=== PATIENT | female | born 1975 | race Caucasian/White ===

== ENCOUNTER 2019-11-10 14:28 | Inpatient (IN) | payer OTHER ==
--- NOTE | 2019-11-10 15:49 | BHS.RME ---
Substance Use & Tx History - Substance Use History Alcohol Substance amount: 2-3 bottles of wine Frequency of use: Daily Substance route: Oral Date of Last Use: 11/10/19 Physical/Psych/Mental Status - Behavior General Behavior: Increased activity (restlessness, agitation) Eye Contact: Normal - Cooperativeness Cooperativeness: Cooperative - Physical Health Problems Is patient presently having any pain?: No Does patient presently have any injuries (include location): No Does patient currently have a fever: No Is patient : No CIWA Nausea/Vomitin Muscle Tremors: 3 Anxiety: 4-Mod. Anxious/Guarded Agitation: 0-Normal Activity Paroxysmal Sweats: No Perspiration Orientation: 0-Oriented Tacttile Disturbances: 0-None Auditory Disturbances: 0-None Visual Disturbances: 0-None Headache: 3-Moderate CIWA-Ar Total Score: 12
--- NOTE | 2019-11-10 17:02 | HP ---
CIWA Score Nausea/Vomitin Muscle Tremors: 3 Anxiety: 4-Mod. Anxious/Guarded Agitation: 0-Normal Activity Paroxysmal Sweats: No Perspiration Orientation: 0-Oriented Tacttile Disturbances: 0-None Auditory Disturbances: 0-None Visual Disturbances: 0-None Headache: 3-Moderate CIWA-Ar Total Score: 12 - Admission Criteria OASAS Guidelines: Admission for Medically Managed Detox: Requires at least one of the followin. CIWA greater than 12 2. Seizures within the past 24 hours 3. Delirium tremens within the past 24 hours 4. Hallucinations within the past 24 hours 5. Acute intervention needed for co occurring medical disorder 6. Acute intervention needed for co occurring psychiatric disorder 7. Severe withdrawal that cannot be handled at a lower level of care (continued vomiting, continued diarrhea, abnormal vital signs) requiring intravenous medication and/or fluids 8. Admitting History and Physical - Admission Chief Complaint: ETOH withdrawal symptoms History Source: Patient Limitations to Obtaining History: No Limitations - Past Medical History ...LMP: 11/10/19 Psych: Yes: Anxiety - Past Surgical History Past Surgical History: Yes: Bariatric Surgery - Smoking History Smoking history: Never smoked Have you smoked in the past 12 months: No - Alcohol/Substance Use Hx Alcohol Use: Yes Number of Drinks Daily: 10 History of Substance Use: reports: None - Social History Usual Living Arrangement: Yes: Alone Do you think of yourself as: Straight/Heterosexual ADL: Independent History of Recent Travel: No Admission [facility] Chief Complaint: ETOH withdrawal symptoms Allergies/Adverse Reactions: Allergies Allergy/AdvReac Type Severity Reaction Status Date / Time No Known Allergies Allergy Verified 11/10/19 15:44 History of Present Illness: PATIENT PRESENTS FOR ALCOHOL WITHDRAWAL SYMPTOMS. PATIENT HAS HX OF DRINKING SOCIALLY BUT IT BECAME PROBLEMATIC AT AGE 42 (AFTER HER GASTRIC BYPASS SURGERY). PATIENT DRINKS 2-3 BOTTLES OF WINE DAILY, WITH LAST DRINK THIS MORNING. PATIENT DENIES HX OF SEIZURES, BUT REPORTS HX OF BLACKOUTS AND EYEOPENER. NO PMH REPORTED. PATIENT HAS HX OF ANXIETY AND PANIC ATTACKS. TREATED WITH KLONIPIN BY COMMUNITY PSYCH MD. PATIENT INFORMED MEDICATION WILL NOT BE GIVEN WHILE IN DETOX. SHE CURRENTLY DENIES SI/HI BUT REPORTS HX OF SUICIDE ATTEMPTS. LAST ATTEMPT 6 MONTHS AGO. Exam Limitations: No Limitations - Ebola screening Have you traveled outside of the country in the last 21 days: No Have you had contact with anyone from an Ebola affected area: No Have you been sick,other than usual withdrawal symptoms: No Do you have a fever: No - Review of Systems Constitutional: Loss of Appetite EENT: reports: No Symptoms Reported Respiratory: reports: No Symptoms reported Cardiac: reports: No Symptoms Reported GI: reports: Nausea : reports: No Symptoms Reported Musculoskeletal: reports: No Symptoms Reported Integumentary: reports: No Symptoms Reported Neuro: reports: Headache, Tremors Endocrine: reports: No Symptoms Reported Hematology: reports: No Symptoms Reported Psychiatric: reports: Orientated x3, Anxious (DENIES SI/HI) Patient History - Patient Medical History Hx Anemia: No Hx Asthma: No Hx Chronic Obstructive Pulmonary Disease (COPD): No Hx Cancer: No Hx Cardiac Disorders: No Hx Congestive Heart Failure: No Hx Hypertension: No Hx Hypercholesterolemia: No Hx Pacemaker: No HX Cerebrovascular Accident: No Hx Seizures: No Hx Dementia: No Hx Diabetes: No Hx Gastrointestinal Disorders: No Hx Liver Disease: No Hx Genitourinary Disorders: No Hx Sexually Transmitted Disorders: No Hx Renal Disease (ESRD): No Hx Thyroid Disease: No Hx Human Immunodeficiency Virus (HIV): No Hx Hepatitis C: No Hx Depression: No (DENIES SI/HI, HX OF SUICIDE ATTEMPT 6 MONTHS AGO) Hx Suicide Attempt: No Hx Bipolar Disorder: No Hx Schizophrenia: No Other Medical History: anxious - Patient Surgical History Past Surgical History: Yes Hx Abdominal Surgery: Yes (Gastric Bypass) Anesthesia Reaction: No - PPD History Previous Implant?: Yes Documented Results: Negative w/o proof Implanted On Prior R Admission?: No PPD to be Administered?: Yes - Reproductive History Patient is a Female of Child Bearing Age (11 -55 yrs old): Yes Last Menstrual Period: 11/10/19 Patient : No - Smoking Cessation Smoking history: Never smoked Have you smoked in the past 12 months: No Hx Chewing Tobacco Use: No Initiated information on smoking cessation: No - Substance & Tx. History Hx Alcohol Use: Yes Hx Substance Use: No Substance Use Type: Alcohol Hx Substance Use Treatment: Yes Admission Physical Exam BHS - Physical General Appearance: Yes: Nourished, Appropriately Dressed, Tremorous, Anxious HEENTM: Yes: EOMI, Hearing grossly Normal, Normocephalic, Normal Voice, REYNA, Pharynx Normal Respiratory: Yes: Chest Non-Tender, Lungs Clear, Normal Breath Sounds, No Respiratory Distress, No Accessory Muscle Use Neck: Yes: No masses,lesions,Nodules, Supple, Trachea in good position Breast: Yes: Breast Exam Deferred Cardiology: Yes: Regular Rhythm, Regular Rate Abdominal: Yes: Normal Bowel Sounds, Non Tender, Soft Genitourinary: Yes: Within Normal Limits Back: Yes: Within Normal Limits Musculoskeletal: Yes: full range of Motion, Gait Steady Extremities: Yes: Normal Range of Motion, Non-Tender, Tremors Neurological: Yes: design intern II-XII NML intact, Fully Oriented, Alert, Motor Strength 5/5, Normal Response, Other (ANXIOUS/TEARFUL) Integumentary: Yes: Normal Color, Dry, Warm Lymphatic: Yes: Within Normal Limits - Diagnostic (1) Alcohol dependence with withdrawal, uncomplicated Current Visit: Yes Status: Acute (2) Anxiety Current Visit: Yes Status: Chronic Cleared for Admission S - Detox or Rehab [facility] Level of Care: Medically Managed Detox Regimen/Protocol: Librium Breathalyzer - Breathalyzer Breathalyzer: 0 POC Urine test - Control test control: Yes - Result Urine Test Results: Negative - NO line present Urine Drug Screen - Results Drug screen NEGATIVE: No Urine drug screen results: BZO-Benzodiazepines Inpatient Rehab Admission - Rehab Decision to Admit Inpatient rehab admission?: No
[2019-11-10 17:03] VITALS: BMI 28.8
[2019-11-10] MEDS ORDERED: guaiFENesin 200 MG/10 ML 10 ML UNIT-DOSE CUPS PO PRN (17:13)
[2019-11-10] MEDS ORDERED: traZODone HCL 50 MG TABLET (FP) PO PRN (17:13)
[2019-11-10] MEDS ORDERED: ONDANSETRON *ODT* 4 MG TABLET SL PRN (17:13)
[2019-11-10] MEDS ORDERED: MAGNESIUM CITRATE 300 ML BOTTLE PO PRN (17:13)
[2019-11-10] MEDS ORDERED: BISMUTH SUBSALICYLATE 524 MG/30 ML UD PO PRN (17:13)
[2019-11-10] MEDS ORDERED: MAG HYDROX/AL HYDROX/SIMETH 30 ML UNIT-DOSE CUP PO PRN (17:13)
[2019-11-10] MEDS ORDERED: METHOCARBAMOL 500 MG TABLET PO PRN (17:13)
[2019-11-10] MEDS ORDERED: IBUPROFEN 400 MG TABLET (FP) PO PRN (17:13)
[2019-11-10] MEDS ORDERED: MAGNESIUM HYDROX 2400MG/30ML ORAL SUSPENSION 30 ML CUP PO PRN (17:13)
[2019-11-10] MEDS ORDERED: ACETAMINOPHEN 325 MG TABLET (FP) PO PRN ×2 (17:13)
[2019-11-10] MEDS ORDERED: MENTHOL/PHENOL 1 EACH UD MM PRN (17:13)
[2019-11-10] MEDS ORDERED: chlordiazePOXIDE HCL 10 MG CAPSULE PO PRN (17:17)
[2019-11-10] MEDS ORDERED: chlordiazePOXIDE HCL 25 MG CAPSULE PO ONE (17:17)
[2019-11-10] MEDS: THIAMINE HCL 100 MG TABLET (FP) PO SCH (21:45)
[2019-11-10] MEDS: chlordiazePOXIDE HCL 25 MG CAPSULE PO SCH (21:45)
[2019-11-10] MEDS: MELATONIN 5 MG TABLETS PO SCH (21:45)
[2019-11-11] MEDS: chlordiazePOXIDE HCL 25 MG CAPSULE PO SCH ×3 (05:24→22:43)
[2019-11-11 10:15] LABS: HEMATOCRIT 36.9 % (32.4-45.2); HEMOGLOBIN 12.4 GM/dL (10.7-15.3); MCH 34.4 pg (25.7-33.7); MCHC 33.7 g/dl (32.0-36.0); MEAN CELL VOLUME 102.2 fl (80-96); MEAN PLT VOLUME 7.4 fl (7.5-11.1); PLATELET COUNT 200 K/MM3 (134-434); RBC 3.61 M/mm3 (3.60-5.2); RDW 15.4 % (11.6-15.6); WHITE BLOOD COUNT 4.5 K/mm3 (4.0-10.0)
[2019-11-11 10:26] LABS: ALBUMIN 2.8 g/dl (3.4-5.0); BILIRUBIN,TOTAL 1.2 mg/dL (0.2-1); BLOOD UREA NITROGEN 14.6 mg/dL (7-18); CALCIUM 8.7 mg/dL (8.5-10.1); CREATININE 0.7 mg/dL (0.55-1.3); POTASSIUM 4.4 mmol/L (3.5-5.1); TOT PROT 6.9 g/dl (6.4-8.2)
[2019-11-11] MEDS: PRENATAL VITAMINS W/ FOLIC ACID TABLET (FP) PO SCH (10:35)
--- NOTE | 2019-11-11 12:32 | CONSULT ---
[facility] Psychiatric Consult - Data Date of interview: 11/11/19 Admission source: [facility] Identifying data: First visit to [facility] and admission to [address] [place] [address] for this 43 y/o female self-referred for detoxification treatment. ALEXSANDRA issues : alcohol. Patient is , no dependents, domiciled (lives with her parents) and currently employed ([employer]). Substance Abuse History: Discussed with the patient in this interview. ALEXSANDRA pro file as follows : Smoking history: Never smoked. Have you smoked in the past 12 months: No. Hx Chewing Tobacco Use: No. Initiated information on smoking cessation: No. Substance & Tx. History. Hx Alcohol Use: Yes. Hx Substance Use: No. Substance Use Type: Alcohol. Hx Substance Use Treatment: Yes. Consumes 2-3 bottles of wine on a daily basis. Medical History: Patient endorses good general health. History of bariatric surgery. No known allergies. Psychiatric History: Patient admits to a distant history of " a few " psychiatric hspitalizations (all at [facility]). Had occurred years ago. Ms Chin states that she had been diagnosed with Bipolar Disorder + Panic Disorder + PTSD. She is currently seeing a psychiatrist, Dr Johnston, at the [facility] in the [place]. Patient indicates that she is prescribed " a mood stabilizer " in addition to clonazepam. She endorses history of multiple suicide attempts via various means (overdose with medications + self-mutilation). Physical/Sexual Abuse/Trauma History: Not discussed. Patient declines. Additional Comment: Urine drug screen results: BZO-Benzodiazepines. Noted. Mental Status Exam - Mental Status Exam Alert and Oriented to: Time, Place, Person Cognitive Function: Good Patient Appearance: Well Groomed (short stature, tattoos on upper extremities, neck, upper chest; bald) Mood: Hopeful Affect: Appropriate, Normal Range Patient Behavior: Fatigued, Appropriate, Cooperative Speech Pattern: Clear, Appropriate (articulate historian) Voice Loudness: Normal Thought Process: Intact, Goal Oriented Thought Disorder: Not Present Hallucinations: Denies Suicidal Ideation: Denies Homicidal Ideation: Denies Insight/Judgement: Poor Sleep: Poorly, Difficulty falling asleep Appetite: Good Gait/Station: Normal Psychiatric Findings - Problem List (Malo 1, 2,3) (1) Alcohol dependence with withdrawal, uncomplicated Current Visit: Yes Status: Acute (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 - Initial Treatment Plan Initial Treatment Plan: Psychoeducation. Sleep hygiene. Motivational counseling. Detoxification in progress. Observation.
--- NOTE | 2019-11-11 13:30 | PN ---
[facility] CIWA - CIWA Score Nausea/Vomitin-No Nausea/No Vomiting Muscle Tremors: 3 Anxiety: 3 Agitation: 2 Paroxysmal Sweats: 3 Orientation: 0-Oriented Tacttile Disturbances: 0-None Auditory Disturbances: 0-None Visual Disturbances: 0-None Headache: 0-None Present CIWA-Ar Total Score: 11 S Progress Note (SOAP) Subjective: Complaints of tremors, agitation, anxiety, and sweats. Objective: 11/11/19 13:29 Vital Signs 11/11/19 09:32 Temperature 96.6 F L Pulse Rate 64 Respiratory 18 Rate Blood Pressure 87/54 L O2 Sat by Pulse 99 Oximetry (%) Laboratory Last Values WBC 4.5 K/mm3 (4.0-10.0) 11/11/19 07:25 RBC 3.61 M/mm3 (3.60-5.2) 11/11/19 07:25 Hgb 12.4 GM/dL (10.7-15.3) 11/11/19 07:25 Hct 36.9 % (32.4-45.2) 11/11/19 07:25 MCV 102.2 fl (80-96) H 11/11/19 07:25 MCH 34.4 pg (25.7-33.7) H 11/11/19 07:25 MCHC 33.7 g/dl (32.0-36.0) 11/11/19 07:25 RDW 15.4 % (11.6-15.6) 11/11/19 07:25 Plt Count 200 K/MM3 (134-434) 11/11/19 07:25 MPV 7.4 fl (7.5-11.1) L 11/11/19 07:25 Sodium 141 mmol/L (136-145) 11/11/19 07:25 Potassium 4.4 mmol/L (3.5-5.1) 11/11/19 07:25 Chloride 106 mmol/L (98-107) 11/11/19 07:25 Carbon Dioxide 31 mmol/L (21-32) 11/11/19 07:25 Anion Gap 4 MMOL/L (8-16) L 11/11/19 07:25 BUN 14.6 mg/dL (7-18) 11/11/19 07:25 Creatinine 0.7 mg/dL (0.55-1.3) 11/11/19 07:25 Est GFR (CKD-EPI)AfAm 124.73 11/11/19 07:25 Est GFR (CKD-EPI)NonAf 107.62 11/11/19 07:25 Random Glucose 77 mg/dL (74-106) 11/11/19 07:25 Calcium 8.7 mg/dL (8.5-10.1) 11/11/19 07:25 Total Bilirubin 1.2 mg/dL (0.2-1) H 11/11/19 07:25 AST 18 U/L (15-37) 11/11/19 07:25 ALT 17 U/L (13-61) 11/11/19 07:25 Alkaline Phosphatase 64 U/L (45-117) 11/11/19 07:25 Total Protein 6.9 g/dl (6.4-8.2) 11/11/19 07:25 Albumin 2.8 g/dl (3.4-5.0) L 11/11/19 07:25 Syphilis Serology Non-reactive (NONREACTIVE) 11/11/19 07:25 Labs noted. Assessment: 11/11/19 13:29 Alert and oriented x 3, in no acute respiratory distress. Full ROM, ambulating in unit without assistance. Skin warm to touch without any lesions. Withdrawal symptoms. Plan: Continue detox protocol.
--- NOTE | 2019-11-11 15:00 | EKG ---
Test Reason : Blood Pressure : / mmHG Vent. Rate : 062 BPM Atrial Rate : 062 BPM P-R Int : 142 ms QRS Dur : 096 ms QT Int : 412 ms P-R-T Axes : 001 -12 004 degrees QTc Int : 418 ms NORMAL SINUS RHYTHM NORMAL ECG NO PREVIOUS ECGS AVAILABLE Confirmed by Alvin Garcia ([id number]) on 11/11/2019 3:00:15 PM Referred By: Confirmed By:Alvin Garcia
[2019-11-11] MEDS: THIAMINE HCL 100 MG TABLET (FP) PO SCH (22:42)
[2019-11-11] MEDS: hydrOXYzine PAMOATE 25 MG CAPSULE (FP) PO PRN (22:43)
[2019-11-11] MEDS: MELATONIN 5 MG TABLETS PO SCH (22:43)
[2019-11-12] MEDS: chlordiazePOXIDE 5 MG CAPSULE PO SCH ×3 (06:14→22:12)
[2019-11-12] MEDS: PRENATAL VITAMINS W/ FOLIC ACID TABLET (FP) PO SCH (12:11)
--- NOTE | 2019-11-12 12:33 | PN ---
S CIWA - CIWA Score Nausea/Vomitin-No Nausea/No Vomiting Muscle Tremors: 2 Anxiety: 3 Agitation: 2 Paroxysmal Sweats: 3 Orientation: 0-Oriented Tacttile Disturbances: 0-None Auditory Disturbances: 0-None Visual Disturbances: 0-None Headache: 0-None Present CIWA-Ar Total Score: 10 S Progress Note (SOAP) Subjective: C/O anxiety, tremors, agitation, and sweats. Objective: 11/12/19 12:31 Vital Signs 11/12/19 11/12/19 11/12/19 05:55 06:09 09:19 Temperature 96.9 F L 97.3 F L Pulse Rate 66 69 77 Respiratory 16 18 Rate Blood Pressure 87/55 L 96/68 105/56 L O2 Sat by Pulse 95 98 Oximetry (%) Laboratory Last Values WBC 4.5 K/mm3 (4.0-10.0) 11/11/19 07:25 RBC 3.61 M/mm3 (3.60-5.2) 11/11/19 07:25 Hgb 12.4 GM/dL (10.7-15.3) 11/11/19 07:25 Hct 36.9 % (32.4-45.2) 11/11/19 07:25 MCV 102.2 fl (80-96) H 11/11/19 07:25 MCH 34.4 pg (25.7-33.7) H 11/11/19 07:25 MCHC 33.7 g/dl (32.0-36.0) 11/11/19 07:25 RDW 15.4 % (11.6-15.6) 11/11/19 07:25 Plt Count 200 K/MM3 (134-434) 11/11/19 07:25 MPV 7.4 fl (7.5-11.1) L 11/11/19 07:25 Sodium 141 mmol/L (136-145) 11/11/19 07:25 Potassium 4.4 mmol/L (3.5-5.1) 11/11/19 07:25 Chloride 106 mmol/L (98-107) 11/11/19 07:25 Carbon Dioxide 31 mmol/L (21-32) 11/11/19 07:25 Anion Gap 4 MMOL/L (8-16) L 11/11/19 07:25 BUN 14.6 mg/dL (7-18) 11/11/19 07:25 Creatinine 0.7 mg/dL (0.55-1.3) 11/11/19 07:25 Est GFR (CKD-EPI)AfAm 124.73 11/11/19 07:25 Est GFR (CKD-EPI)NonAf 107.62 11/11/19 07:25 Random Glucose 77 mg/dL (74-106) 11/11/19 07:25 Calcium 8.7 mg/dL (8.5-10.1) 11/11/19 07:25 Total Bilirubin 1.2 mg/dL (0.2-1) H 11/11/19 07:25 AST 18 U/L (15-37) 11/11/19 07:25 ALT 17 U/L (13-61) 11/11/19 07:25 Alkaline Phosphatase 64 U/L (45-117) 11/11/19 07:25 Total Protein 6.9 g/dl (6.4-8.2) 11/11/19 07:25 Albumin 2.8 g/dl (3.4-5.0) L 11/11/19 07:25 Syphilis Serology Non-reactive (NONREACTIVE) 11/11/19 07:25 COVID-19 (WENDI) Not detected (Not Detected) 11/10/19 18:10 Labs noted. Assessment: 11/12/19 12:31 Alert and oriented x 3, in no acute respiratory distress. Full ROM, ambulatory in unit without any assistance. Skin warm to touch without any lesions. Withdrawal symptoms. Plan: Continue detox protocol.
[2019-11-12] MEDS: hydrOXYzine PAMOATE 25 MG CAPSULE (FP) PO PRN (22:12)
[2019-11-12] MEDS: MELATONIN 5 MG TABLETS PO SCH (22:12)
[2019-11-12] MEDS: THIAMINE HCL 100 MG TABLET (FP) PO SCH (22:12)
[2019-11-13] MEDS ORDERED: chlordiazePOXIDE HCL 10 MG CAPSULE PO PRN
[2019-11-13] MEDS: chlordiazePOXIDE HCL 10 MG CAPSULE PO SCH ×3 (05:35→22:09)
[2019-11-13] MEDS: PRENATAL VITAMINS W/ FOLIC ACID TABLET (FP) PO SCH (09:54)
[2019-11-13] MEDS: hydrOXYzine PAMOATE 25 MG CAPSULE (FP) PO PRN ×2 (09:54→22:09)
--- NOTE | 2019-11-13 10:00 | PN ---
[facility] CIWA - CIWA Score Nausea/Vomitin-No Nausea/No Vomiting Muscle Tremors: None Anxiety: 3 Agitation: 0-Normal Activity Paroxysmal Sweats: 2 Orientation: 0-Oriented Tacttile Disturbances: 0-None Auditory Disturbances: 0-None Visual Disturbances: 0-None Headache: 0-None Present CIWA-Ar Total Score: 5 S Progress Note (SOAP) Subjective: c/o mild withdrawal symptoms. Objective: 11/13/19 09:59 Vital Signs 11/13/19 11/13/19 05:46 08:21 Temperature 96.9 F L 97.5 F L Pulse Rate 60 70 Respiratory 18 16 Rate Blood Pressure 98/60 93/67 O2 Sat by Pulse 99 99 Oximetry (%) Laboratory Last Values WBC 4.5 K/mm3 (4.0-10.0) 11/11/19 07:25 RBC 3.61 M/mm3 (3.60-5.2) 11/11/19 07:25 Hgb 12.4 GM/dL (10.7-15.3) 11/11/19 07:25 Hct 36.9 % (32.4-45.2) 11/11/19 07:25 MCV 102.2 fl (80-96) H 11/11/19 07:25 MCH 34.4 pg (25.7-33.7) H 11/11/19 07:25 MCHC 33.7 g/dl (32.0-36.0) 11/11/19 07:25 RDW 15.4 % (11.6-15.6) 11/11/19 07:25 Plt Count 200 K/MM3 (134-434) 11/11/19 07:25 MPV 7.4 fl (7.5-11.1) L 11/11/19 07:25 Sodium 141 mmol/L (136-145) 11/11/19 07:25 Potassium 4.4 mmol/L (3.5-5.1) 11/11/19 07:25 Chloride 106 mmol/L (98-107) 11/11/19 07:25 Carbon Dioxide 31 mmol/L (21-32) 11/11/19 07:25 Anion Gap 4 MMOL/L (8-16) L 11/11/19 07:25 BUN 14.6 mg/dL (7-18) 11/11/19 07:25 Creatinine 0.7 mg/dL (0.55-1.3) 11/11/19 07:25 Est GFR (CKD-EPI)AfAm 124.73 11/11/19 07:25 Est GFR (CKD-EPI)NonAf 107.62 11/11/19 07:25 Random Glucose 77 mg/dL (74-106) 11/11/19 07:25 Calcium 8.7 mg/dL (8.5-10.1) 11/11/19 07:25 Total Bilirubin 1.2 mg/dL (0.2-1) H 11/11/19 07:25 AST 18 U/L (15-37) 11/11/19 07:25 ALT 17 U/L (13-61) 11/11/19 07:25 Alkaline Phosphatase 64 U/L (45-117) 11/11/19 07:25 Total Protein 6.9 g/dl (6.4-8.2) 11/11/19 07:25 Albumin 2.8 g/dl (3.4-5.0) L 11/11/19 07:25 Syphilis Serology Non-reactive (NONREACTIVE) 11/11/19 07:25 COVID-19 (WENDI) Not detected (Not Detected) 11/10/19 18:10 Labs noted. Assessment: 11/13/19 09:59 AOX3, in no acute respiratory distress. Full ROM, ambulating in the unit. Mild Withdrawal symptoms. For d/c tomorrow. Plan: continue detox. D/C in AM.
[2019-11-13] MEDS: MELATONIN 5 MG TABLETS PO SCH (22:10)
[2019-11-13] MEDS: THIAMINE HCL 100 MG TABLET (FP) PO SCH (22:10)
[2019-11-14] MEDS ORDERED: chlordiazePOXIDE HCL 10 MG CAPSULE PO ONE (05:00)
[2019-11-14 06:57] VITALS: BP 109/71; PULSE 49; TEMP 96.2
[2019-11-14] MEDS: hydrOXYzine PAMOATE 25 MG CAPSULE (FP) PO PRN (07:32)
--- NOTE | 2019-11-14 11:12 | DS ---
[facility] Detox Discharge Summary Admission Date: 11/10/19 Discharge Date: 11/14/19 - History Present History: Alcohol Dependence - Physical Exam Results Vital Signs: Vital Signs Temperature 96.2 F L 11/14/19 06:56 Pulse Rate 49 L 11/14/19 06:56 Respiratory Rate 18 11/14/19 06:56 Blood Pressure 109/71 11/14/19 06:56 O2 Sat by Pulse Oximetry (%) 96 11/14/19 06:56 Pertinent Admission Physical Exam Findings: Vital Signs Temperature 96.2 F L 11/14/19 06:56 Pulse Rate 49 L 11/14/19 06:56 Respiratory Rate 18 11/14/19 06:56 Blood Pressure 109/71 11/14/19 06:56 O2 Sat by Pulse Oximetry (%) 96 11/14/19 06:56 Laboratory Tests 11/10/19 11/11/19 11/11/19 18:10 07:25 07:25 WBC 4.5 RBC 3.61 Hgb 12.4 Hct 36.9 MCV 102.2 H MCH 34.4 H MCHC 33.7 RDW 15.4 Plt Count 200 MPV 7.4 L Sodium Potassium Chloride Carbon Dioxide Anion Gap BUN Creatinine Est GFR (CKD-EPI)AfAm Est GFR (CKD-EPI)NonAf Random Glucose Calcium Total Bilirubin AST ALT Alkaline Phosphatase Total Protein Albumin Syphilis Serology Non-reactive COVID-19 (WENDI) Not detected 11/11/19 07:25 WBC RBC Hgb Hct MCV MCH MCHC RDW Plt Count MPV Sodium 141 Potassium 4.4 Chloride 106 Carbon Dioxide 31 Anion Gap 4 L BUN 14.6 Creatinine 0.7 Est GFR (CKD-EPI)AfAm 124.73 Est GFR (CKD-EPI)NonAf 107.62 Random Glucose 77 Calcium 8.7 Total Bilirubin 1.2 H AST 18 ALT 17 Alkaline Phosphatase 64 Total Protein 6.9 Albumin 2.8 L Syphilis Serology COVID-19 (WENDI) aaox3 ambulating no acute distress - Treatment Hospital Course: Detox Protocol Followed, Detoxed Safely, Responded well, Discharged Condition Good, Rehab Referral Accepted - Medication Discharge Medications: Ambulatory Orders Clonazepam [Klonopin] 1 mg PO BID PRN 11/10/19 - Diagnosis (1) Alcohol dependence with withdrawal, uncomplicated Status: Chronic (2) Alcohol-induced mood disorder Status: Chronic (3) Anxiety Status: Chronic (4) History of bipolar disorder Status: Chronic - AMA Did Patient Leave Against Medical Advice: No
== END 2019-11-14 08:20 | disposition home or self-care (01) | DRG 775 ==
LOC: YASAS 14:28 → Y6N 18:18
PROVIDERS: ADMIT Allergy & Immunology; ATTEND Allergy & Immunology
PROC: HZ2ZZZZ Detoxification Services for Substance Abuse Treatment (ICD-10-PCS; principal; 2019-11-10)
DX: F10.230 Alcohol dependence with withdrawal, uncomplicated (principal); F10.24 Alcohol dependence with alcohol-induced mood disorder; F31.9 Bipolar disorder, unspecified; F41.9 Anxiety disorder, unspecified; Z98.84 Bariatric surgery status; Z91.5 Personal history of self-harm
CPT/HCPCS: 36415; 80053; 81025; 85027; 86780; 93005; 93010; U0003